=== PATIENT | female | born 1945 | race Two or more races ===

== ENCOUNTER 2024-01-25 10:29 | Emergency (ER) | payer OTHER ==
[~2024-01-25] VITALS: Ht 167.6 cm; Wt 52.2 kg
[2024-01-25] MEDS ORDERED: SYNTHROID100 MCG PO (11:19)
[2024-01-25] MEDS ORDERED: COZAAR25 MG PO (11:21)
[2024-01-25 12:31] LABS: HEMATOCRIT 39.8 % (36.0-45.00); HEMOGLOBIN 13.8 g/dL (12.0-15.00); MEAN CELL VOLUME 89.3 fL (80.00-100.00); MEAN CORPUSCULAR HEMOGLOBIN 30.9 pg (27.00-32.0); MEAN CORPUSCULAR HGB CONC 34.6 g/dl (32.0-36.0); RED BLOOD COUNT 4.46 M/uL (4.00-6.00); RED CELL DISTRIBUTION WIDTH 14.2 % (11.5-14.5)
[2024-01-25 12:37] LABS: CALCIUM 9.8 mg/dL (8.5-10.1); CREATININE SERUM 0.85 mg/dL (0.55-1.02); GFR 65.03; POTASSIUM 4.33 mEq/L (3.5-5.1)
[2024-01-25 12:53] LABS: PLATELET COUNT 285 K/uL (150-450)
[2024-01-25 12:57] LABS: URINE APPEARANCE Cloudy; URINE BILIRRUBIN Negative (NEGATIVE); URINE BLOOD Moderate; URINE COLOR Dark Yellow; URINE KETONE Trace (NEGATIVE); URINE LEUKOCYTE Moderate; URINE NITRATE Negative
[2024-01-25 13:02] LABS: URINE BACTERIA 1048.2 uL (0.0-1933); URINE EPITHELIAL CELLS 137.7 uL (0.0-38.8); URINE RBC 41.5 uL (0.0-20.8); URINE WBC 293.4 uL (0.0-23.2)
[2024-01-25 13:19] LABS: URINE CAST > 21.83 uL (0.0-1.40); URINE GLUCOSE 100 MG/DL (NEGATIVE); URINE PROTEIN 100 (NEGATIVE)
[2024-01-25 13:21] LABS: URINE CRYSTALS FEW /HPF
[2024-01-25 13:22] LABS: URINE MUCUS HEAVY
== END 2024-01-25 16:25 | disposition home or self-care (01) ==
LOC: ER 10:30
PROVIDERS: Emergency Medicine
DX: R10.9 Unspecified abdominal pain (principal); Z88.0 Allergy status to penicillin
CPT/HCPCS: 36415; 74177; 99284; Q9965

== ENCOUNTER 2024-01-27 09:51 | Emergency (ER) | payer OTHER ==
[~2024-01-27] VITALS: Ht 167.6 cm; Wt 54.4 kg
[~2024-01-27 09:51] MED LIST: COZAAR25 MG PO; SYNTHROID100 MCG PO
[2024-01-27] MEDS ORDERED: METOCLOPRAMIDE HCL 5 MG/ML VIAL IV STA (10:26)
[2024-01-27] MEDS ORDERED: FAMOtidine 10 MG/ML (4ML VIAL) IV STA (10:27)
[2024-01-27 10:58] LABS: HEMOGLOBIN 13.2 g/dL (12.0-15.00); MEAN CELL VOLUME 89.9 fL (80.00-100.00); MEAN CORPUSCULAR HEMOGLOBIN 31.1 pg (27.00-32.0); MEAN CORPUSCULAR HGB CONC 34.6 g/dl (32.0-36.0); PLATELET COUNT 245 K/uL (150-450); RED BLOOD COUNT 4.23 M/uL (4.00-6.00); RED CELL DISTRIBUTION WIDTH 14.1 % (11.5-14.5)
[2024-01-27 11:29] LABS: ALBUMIN 3.9 gm/dL (3.4-5.0); BILIRUBIN TOTAL 0.72 mg/dL (0.3-1.2); BILIRUBIN,CONJUGATED 0.17 mg/dL (0.0-0.2); BILIRUBIN,UNCONJUGATED 0.55 mg/dL (0.0-0.6); CREATININE SERUM 0.8 mg/dL (0.55-1.02); GFR 69.74; POTASSIUM 3.24 mEq/L (3.5-5.1); TOTAL PROTEIN 7.6 gm/dL (6.4-8.2)
[2024-01-27 11:52] LABS: URINE APPEARANCE Clear; URINE BILIRRUBIN Negative (NEGATIVE); URINE BLOOD Small; URINE COLOR Yellow; URINE GLUCOSE Negative (NEGATIVE); URINE KETONE Trace (NEGATIVE); URINE LEUKOCYTE Small; URINE NITRATE Negative; URINE PROTEIN 30 (NEGATIVE); URINE UROBILINOGEN 0.2 E.U./dl
[2024-01-27 11:55] LABS: URINE BACTERIA 113.3 uL (0.0-1933); URINE CAST 6.56 uL (0.0-1.40); URINE EPITHELIAL CELLS 68.4 uL (0.0-38.8); URINE RBC 4.7 uL (0.0-20.8); URINE WBC 41.2 uL (0.0-23.2)
[2024-01-27 12:18] LABS: URINE MUCUS MODERATE
== END 2024-01-27 13:14 | disposition home or self-care (01) ==
LOC: ER 09:51
PROVIDERS: General Practice
DX: R10.13 Epigastric pain (principal); G30.8 Other Alzheimer's disease; F02.80 Dementia in other diseases classified elsewhere, unspecified severity, without behavioral disturbance, psychotic disturbance, mood disturbance, and anxiety; E03.8 Other specified hypothyroidism; Z88.0 Allergy status to penicillin
CPT/HCPCS: 36415; 96365; 99282; J2765; J3490